=== PATIENT | female | born 1965 | race Caucasian/White ===

== ENCOUNTER 2018-02-13 06:02 | Inpatient (IN) ==
--- NOTE | 2018-02-05 14:03 | Anesthesiology Consultation ---
Date of Service February 05, 2018 Assessment & Plan (1) Encounter for pre-operative examination: Plan: - Egg allergy: anaphylaxis - Patient taking Contrave (naltrexone-bupropion) for weight loss; per patient, this has already been on hold per PCP recommendations. Chart Review Chart Review: Acceptable Risk for Surgery and Patient seen in Pre Admission Testing Teaching & Discussion Pre-Anesthesia Teaching/Discussion Notes: Instructed NPO after midnight before surgery,except medications with 15 cc of water. Medication instructions provided according to the PAT guidelines. History Surgery Operation Date: 02/13/18 11:10 Proposed Procedures p Left Total Knee Arthroplasty - Sher Wilhelm MD Height/Weight Height: 5 ft 9 in Weight: 155.5 kg Allergies Allergy/AdvReac Type Severity Reaction Status Date / Time adhesive tape Allergy Unknown skin Verified 01/31/18 08:17 irritation banana Allergy Unknown gi upsets Verified 01/31/18 07:56 amoxicillin Allergy lips numb, Verified 01/31/18 07:52 hives, swelling blueberry Allergy gi upsets Verified 01/31/18 07:57 egg Allergy anaphylaxis Verified 02/05/18 14:02 Penicillins Allergy hives, Verified 01/31/18 07:52 swelling almond AdvReac Unknown gi upsets Verified 01/31/18 07:56 lactose AdvReac Unknown gi upsets Verified 01/31/18 07:56 strawberry AdvReac Unknown Gastrointestinal Verified 01/31/18 07:57 Upset orange AdvReac gi upsets Verified 01/31/18 07:56 rice AdvReac gi upsets Verified 01/31/18 07:56 Medications Home Medications Medication Instructions Recorded Confirmed Last Taken acetaminophen [Tylenol Arthritis 2 tab PO QAM 01/31/18 01/31/18 Unknown Pain] amlodipine 10 mg PO QAM 01/31/18 01/31/18 Unknown cetirizine [Zyrtec] 10 mg PO DAILY PRN 01/31/18 01/31/18 Unknown naltrexone-bupropion [Contrave] 2 tab PO BID 01/31/18 01/31/18 Unknown valsartan-hydrochlorothiazide 1 tab PO QAM 01/31/18 01/31/18 Unknown Past Medical History Medical History Hypertension Morbid obesity Osteoarthritis Past Surgical History Surgical History History of meniscectomy of left knee Hx of appendectomy Hx of colonoscopy Hx of prior ablation treatment UTERINE Hx of tubal ligation Past Anesthesia History No Hx of Anesthesia Complications (EXCEPT PONV X 1 EPISODE) and No Family Hx of Anesthesia Complications History of PONV Yes (1 EPISODE) Motion Sickness Screening History of Motion Sickness: Yes Social History Smoking Status: Never smoker Do You Dip or Chew Tobacco: No Hx Alcohol Use: Yes Alcohol type: beer alcohol intake frequency: holidays/special occasions only Hx Substance Use: No Exercise / Class Metabolic Activity III < 4 Walking/Shop/Light housework Review of Systems Patient denies chest pain, shortness of breath, reflux, cough, wheezing, palpitations. Physical Exam Vital Signs VITALS BP 148/86 P 83 TEMP 97.5 SP02 96%RA RESP 18 Full neck and c-spine range of motion. Short, thick neck Full TMJ range of motion. TMD 3 finger breaths Mallampati Score 2 (large tonsils) Dentition: missing molars Lungs: clear throughout to auscultation Cardiac: regular rate and rhythm, I/ systolic murmur Spine: normal Carotid arteries: negative bruit Extremities: no edema Testing Electrocardiogram Date: 02/05/18 Findings: + NSR @ (75) Chest X-Ray Date: 02/05/18 Findings: + NAD Laboratory Results 02/05/18 14:25 02/05/18 14:25 Blood Type A Positive 02/05/18 14:25 Antibody Screen NEGATIVE 02/05/18 14:25 PT 9.9 Seconds (9.0-12.0) 02/05/18 14:25 INR 1.0 (0.9-1.1) 02/05/18 14:25 APTT 28.9 Seconds (21.0-31.0) 02/05/18 14:25 Hemoglobin A1c 5.3 % (4.5-5.6) 02/05/18 14:25 Urine Color Yellow 02/05/18 Unknown Urine Appearance Clear (Clear) 02/05/18 Unknown Urine pH 6.5 (4.5-7.5) 02/05/18 Unknown Ur Specific Brent 1.024 (1.000-1.030) 02/05/18 Unknown Urine Protein Negative (Negative) 02/05/18 Unknown Urine Glucose (UA) Negative (Negative) 02/05/18 Unknown Urine Ketones Negative (Negative) 02/05/18 Unknown Urine Nitrite Negative (Negative) 02/05/18 Unknown Ur Leukocyte Esterase Negative (Negative) 02/05/18 Unknown
--- NOTE | 2018-02-05 14:05 | PAT Medication Instructions ---
Medication Instructions Date of Service February 05, 2018 Home Medications acetaminophen [Tylenol Arthritis 2 tab PO QAM amlodipine 10 mg PO QAM cetirizine [Zyrtec] 10 mg PO DAILY PRN naltrexone-bupropion [Contrave] 2 tab PO BID valsartan-hydrochlorothiazide 1 tab PO QAM DO NOT take the morning of surgery cetirizine [Zyrtec] 10 mg PO DAILY PRN valsartan-hydrochlorothiazide 1 tab PO QAM Take morning of surgery With a small sip of water, OTHERWISE NOTHING TO EAT OR DRINK AFTER MIDNIGHT: acetaminophen [Tylenol Arthritis 2 tab PO QAM amlodipine 10 mg PO QAM naltrexone-bupropion [Contrave] 2 tab PO BID Take evening before surgery naltrexone-bupropion [Contrave] 2 tab PO BID Other Notes If you have any questions please call us at [phone] or [phone] or [phone] or [phone]
--- NOTE | 2018-02-05 14:53 | XRay Report ---
XR chest Pre-admission PA/Lat CLINICAL HISTORY: Preoperative evaluation. COMPARISON STUDY: No previous studies for comparison. FINDINGS: Lung volumes are normal. There is no pneumothorax or pleural effusion. There is no consolid ation or evidence for pulmonary edema. Cardiac size is normal. Mediastinal contours are normal. IMPRESSION: No acute cardiopulmonary findings. Electronically signed by: Oniel Osullivan M.D. 02/05/2018 2:52 PM
[2018-02-05 15:00] LABS: Basophils # (auto) 0.03 K/uL (0-0.2); Basophils % (auto) 0.4 %; Eosinophils # (auto) 0.08 K/uL (0-0.5); Hematocrit (blood only) 41.9 % (37-47); Hemoglobin 13.6 g/dL (12.0-16.0); Immature Granulocytes # (auto) 0.02 K/uL (0.00-0.02); Immature Granulocytes % (auto) 0.2 %; Lymphocytes # (auto) 1.81 K/uL (1.2-3.4); Lymphocytes % (auto) 21.9 %; Mean Corpuscular Hgb Conc 32.5 g/dL (32-36); Mean Corpuscular Volume 89.1 fL (80-100); Mean Platelet Volume 9.2 fL (7.4-10.4); Monocytes # (auto) 0.58 K/uL (0.11-0.59); Neutrophils # (auto) 5.73 K/uL (1.4-6.5); Neutrophils % (auto) 69.5 %; Platelet Count 353 K/uL (130-400); RDW Coefficient of Variation 13.7 % (11.5-14.5); RDW Standard Deviation 44.7 fL (36.4-46.3); White Blood Count 8.25 K/uL (4.8-10.8)
[2018-02-05 15:04] LABS: Appearance Urine Clear (Clear); Bilirubin Urine Negative (Negative); Color Urine Yellow; Glucose Urine UA Negative (Negative); Ketones Urine Negative (Negative); Leukocyte Esterase Urine Negative (Negative); Nitrite Urine Negative (Negative); Protein Urine Negative (Negative); Specific Gravity Urine 1.024 (1.000-1.030); Urobilinogen Urine Negative (Negative); pH Urine 6.5 (4.5-7.5)
[2018-02-05 15:14] LABS: Partial Thromboplastin Ratio 1.1; Partial Thromboplastin Time 28.9 Seconds (21.0-31.0); Prothrombin Time 9.9 Seconds (9.0-12.0)
[2018-02-05 15:56] LABS: Albumin Level 3.8 gm/dl (3.4-5.0); BUN Creatinine Ratio 17.6 (10-20); Calcium 8.7 mg/dl (8.5-10.1); Creatinine Clr Calc Pharmacy 132.4 ml/min; Est GFR (African American) 98.2; Est GFR (Non-African American) 84.8; Potassium 3.6 mmol/L (3.5-5.1)
[2018-02-06 06:21] LABS: Estimated Average Glucose 105 mg/dl
--- NOTE | 2018-02-12 16:00 | History and Physical Report ---
DATE OF ADMISSION: 02/13/2018 CHIEF COMPLAINT: Chronic left knee pain. HISTORY OF PRESENT ILLNESS: This is a 52-year-old female patient of Dr. Wilhelm'edu complaining of chronic left knee pain, longstanding, now progressively getting worse. Patient has been diagnosed with end-stage osteoarthritis per clinical and radiographic exams. Patient has failed conservative treatment including intraarticular injections, antiinflammatories, arthroscopic surgery, and physical therapy. She has increased pain with weightbearing activities, and her pain does interfere with her activities of daily living. PAST MEDICAL HISTORY: Hypertension, thyroid nodules, benign, osteoarthritis, spine problems, neck problems, sciatica, obesity. SOCIAL HISTORY: Nonsmoker. Occasional drinker. PAST SURGICAL HISTORY: Tubal ligation, appendectomy, gallbladder, uterine ablation, left meniscal surgery on her knee. FAMILY HISTORY: Noncontributory. REVIEW OF SYSTEMS: Left knee pain and instability, otherwise denies any shortness of breath, chest pain, nausea, vomiting, or any other joint complaints. MEDICATIONS: Valsartan 320/25 daily, amlodipine 10 mg daily, Tylenol 325 mg as needed, ibuprofen as needed. ALLERGIES: INCLUDE AMOXICILLIN, EGG, LATEX, AND PENICILLIN. PHYSICAL EXAMINATION: GENERAL: Well-developed and well-nourished 52-year-old female, in no acute distress. She is alert, oriented x3, and pleasant. HEENT: Normocephalic and atraumatic. Extraocular motions are intact. Pupils are equal and reactive to light. CARDIOVASCULAR: Heart has regular rate and rhythm. There are no murmurs appreciated. RESPIRATORY: Lungs are clear. GASTROINTESTINAL: Abdomen is soft, nontender, bowel sounds present. EXTREMITIES: Left knee reveals mild effusion with 0-125 degrees of motion. She has a valgus deformity. She is morbidly obese. She has 4/5 strength. Neurologically and neurovascularly, she is intact in her left lower extremity. DIAGNOSES: Left knee end-stage osteoarthritis, hypertension, spine problems, neck problems, sciatica, and obesity. PLAN: Patient was advised of her diagnoses. Indications, risks, benefits, postop course have all been reviewed. Patient wished to proceed with a left total knee arthroplasty. Necessary consent forms, preoperative testing and clearances will be obtained.
[~2018-02-13 06:02] MED LIST: ACETAMINOPHEN 500 MG TAB PO SCH; CeleBREX 200 MG CAP PO SCH; FAMOTIDINE 20 MG TAB PO SCH; GABAPENTIN 300 MG x 3 PO SCH; METOCLOPRAMIDE HCL 10 MG TABLET PO SCH; ROPIVACAINE 0.5% HCL/PF 150 MG, BUPIVACAINE 0.5% MPF 30 ML, EPINEPHrine 30MG/30ML (OR U... INFIL SCH; TRANEXAMIC ACID 1,000 MG **IV Pre-op IV SCH; VANCOMYCIN HCL 2,000 MG in SODIUM CHLORIDE 0.9% 500 ML IV SCH; dexAMETHasone 4 MG TAB PO SCH
[2018-02-13] MEDS ORDERED: TRANEXAMIC ACID 1,000 MG **IV Intra-op IV SCH (06:30)
[2018-02-13] MEDS: LR 500ML BOLUS, THEN 15ML/HR IV SCH (06:40)
[2018-02-13] MEDS ORDERED: ROPIVACAINE 0.5% 5 MG/ML 30 ML VIAL ONE (06:42)
[2018-02-13] MEDS ORDERED: BUPIVACAINE 0.5 % 5 MG/1 ML PF 10ML VIAL ONE (06:42)
[2018-02-13] MEDS ORDERED: DEXAMETHASONE SOD INJ 4 MG/ML VIAL ONE ×2 (06:42→08:52)
[2018-02-13] MEDS ORDERED: EPINEPHrine INJ 1 MG/ML AMP ONE (06:42)
[2018-02-13] MEDS ORDERED: MIDAZOLAM HCL 1 MG/ML 2ML VIAL ONE (06:45)
[2018-02-13] MEDS ORDERED: KETAMINE HCL INJ 50 MG/ML 10 ML VIAL ONE (06:46)
--- NOTE | 2018-02-13 07:05 | History & Physical Bridge Note ---
Date of Service February 13, 2018 History & Physical Bridge Note I have examined the patient, reviewed the History & Physical and in the interval since the performance of the History & Physical I have noted the following changes of clinical significance: no changes noted
[2018-02-13] MEDS ORDERED: BACITRACIN INJ 50,000 UNIT VIAL ONE (07:10)
[2018-02-13] MEDS ORDERED: ORTHO JOINT ANESTHETIC ONE (07:10)
[2018-02-13] MEDS ORDERED: POVIDONE-IODINE OP SOLN 30 ML BTL ONE (07:10)
[2018-02-13] MEDS ORDERED: GLYCOPYRROLATE 0.2 MG/ML VIAL ONE (08:52)
[2018-02-13] MEDS ORDERED: ONDANSETRON INJ 2 MG/ML 2 ML VIAL ONE (08:52)
[2018-02-13] MEDS ORDERED: PROPOFOL IV EMULSION 10 MG/ML 20 ML VIAL IV ONE ×3 (08:52→09:53)
[2018-02-13] MEDS ORDERED: LIDOCAINE HCL 2% 2 ML VIAL/AMP(20MG/ML) INFIL ONE (08:52)
--- NOTE | 2018-02-13 10:41 | Post Operative Brief Note ---
Immediate Post Op Note v1 Date of Surgery February 13, 2018 Pre & Post Diagnosis Operation Date: 02/13/18 08:40 Pre-Op Diagnosis: Left Knee Degenerative Joint Disease obesity BMI 50 Post-Op Diagnosis: Left Knee Degenerative Joint Disease obesity BMI 50 Operation Date: 02/13/18 11:10 <No data on this case meets the specified criteria> Procedure Operation Date: 02/13/18 08:40 Actual Procedures p Left Total Knee Arthroplasty, lateral release, increased difficulty morbid obesity BMI 50- Sher Wilhelm MD Operation Date: 02/13/18 11:10 <No data on this case meets the specified criteria> Surgeon Sher Wilhelm MD Lathe Winder Alex LUGO Estimated Blood Loss 5 Findings Consistent with Post-Op Diagnosis Specimens Bone cuts Drains Hemovac Drain (10 [place] Dual lumen hemovac) Anesthesia Type Spinal MAC Complications none Disposition Accompanied Patient To Recovery: No Disposition: Recovery Room Overlapping Procedure I was present for: the critical portions of procedure.
--- NOTE | 2018-02-13 12:03 | Anesthesiology Progress Note ---
Date of Service February 13, 2018 Anesthesia Post Procedure Vital Signs Vital Signs: Temp Pulse Pulse Resp BP Pulse Ox 02/13/18 11:45 82 21 119/71 94 02/13/18 11:35 79 12 154/69 H 97 02/13/18 11:25 36.6 C 85 14 146/69 H 97 02/13/18 11:15 90 14 146/68 H 98 02/13/18 11:06 36.4 C L 101 H 20 121/68 98 02/13/18 06:53 36.6 C 82 20 147/81 H 96 Notes Mental Status: alert / awake / arousable Patient Amnestic to Procedure: Yes Nausea / Vomiting: adequately controlled Pain: adequately controlled Airway Patency, RR, SpO2: stable & adequate BP & HR: stable & adequate Hydration State: stable & adequate Neuraxial Anesthesia: was administered and sensory block is resolving Anesthetic Complications: no major complications apparent
[2018-02-13] MEDS ORDERED: MAGNESIUM HYDROXIDE SUSP 30 ML UDC PO PRN (12:18)
[2018-02-13] MEDS ORDERED: VANCOMYCIN CONSULT ACTIVE PRN (12:18)
[2018-02-13] MEDS ORDERED: ONDANSETRON INJ 2 MG/ML 2 ML VIAL IV PRN (12:18)
[2018-02-13] MEDS ORDERED: MoRPHine SULFATE 2 MG/ML CARP IV PRN (12:18)
[2018-02-13] MEDS ORDERED: SODIUM CHLORIDE 0.9% IV SCH (12:18)
[2018-02-13] MEDS ORDERED: CETIRIZINE HCL 10 MG TABLET PO PRN (12:18)
[2018-02-13] MEDS ORDERED: VANCOMYCIN HCL IV SCH (12:18)
[2018-02-13] MEDS ORDERED: SODIUM CHLORIDE 0.9% 1000ML 1,000 ML IV SCH (12:18)
--- NOTE | 2018-02-13 12:19 | XRay Report ---
LEFT KNEE 2 VIEWS History: Left total knee arthroplasty. Degenerative arthritis. Postop. FINDINGS: The patient is status post a left total knee arthroplasty. The hardware is intact. No fract ure or dislocation. Skin artemio and surgical drains are in place. IMPRESSION: Left total knee arthroplasty. No evidence for hardware complication. Electronically signed by: Jerome Benitez M.D. 02/13/2018 12:17 PM
[2018-02-13] MEDS: TRAMADOL HCL 50 MG TABLET PO PRN ×2 (13:22→19:55)
--- NOTE | 2018-02-13 13:46 | Consultation ---
Date of Consultation February 13, 2018 Assessment & Plan (1) Post-operative state: s/p left TKA 02/13 bowel regimen, dvt prophylaxis, pain control per primary CBC am to assess for acute blood loss (2) Hypertension: Will hold valsartan/hctz for tomorrow to reduce potential for post op orthostatic hypotension (3) Morbid obesity: Hold Contrave while being treated for pain, looks like last dose has been a few weeks ago anyway. Supervising Physician Co-Signing Physician Notes [employer] Physician Supervision Note: I discussed with Francie Oliver NP and agree with findings and plan as documented in the note. Any exceptions or clarifications are listed here: None Patient is stable postoperatively agree with holding her ARB hydrochlorothiazide on postop day 1 physical exam is unremarkable with clear lungs and regular heart continue supportive care Documented By: Anatoly Harvey History of Present Illness Reason for Consultation: Ms. Luna is s/p left TKA today. She is having some pain at the surgical site but is otherwise without complaints. Attending Physician: Sher Wilhelm MD Allergies Allergy/AdvReac Type Severity Reaction Status Date / Time Sulfa (Sulfonamide Allergy Intermediate hives,throat Verified 02/13/18 06:51 Antibiotics) swelling adhesive tape Allergy Unknown skin Verified 02/13/18 06:50 irritation banana Allergy Unknown gi upsets Verified 02/13/18 06:50 amoxicillin Allergy lips numb, Verified 02/13/18 06:50 hives, swelling blueberry Allergy gi upsets Verified 02/13/18 06:50 egg Allergy anaphylaxis Verified 02/13/18 06:50 Penicillins Allergy hives, Verified 02/13/18 06:50 swelling almond AdvReac Unknown gi upsets Verified 02/13/18 06:50 lactose AdvReac Unknown gi upsets Verified 02/13/18 07:12 strawberry AdvReac Unknown Gastrointestinal Verified 02/13/18 06:50 Upset orange AdvReac gi upsets Verified 02/13/18 06:50 rice AdvReac gi upsets Verified 02/13/18 06:50 Home Medications Home Medications Medication Instructions Recorded Confirmed Type acetaminophen [Tylenol Arthritis 2 tab PO QAM 01/31/18 02/13/18 History Pain] amlodipine 10 mg PO QAM 01/31/18 02/13/18 History cetirizine [Zyrtec] 10 mg PO DAILY PRN 01/31/18 02/13/18 History naltrexone-bupropion [Contrave] 2 tab PO BID 01/31/18 02/13/18 History valsartan-hydrochlorothiazide 1 tab PO QAM 01/31/18 02/13/18 History Patient History Medical History Hypertension Osteoarthritis Morbid obesity Surgical History Hx of prior ablation treatment UTERINE Hx of tubal ligation Hx of appendectomy History of meniscectomy of left knee Hx of colonoscopy Family History Father CVA (cerebral vascular accident) Throat cancer Mother Breast cancer Social History Current Living Situation: Spouse Other Information That Helps Us Care for You: No Feels Safe at Home: Yes Safety Concerns: Feels Safe At This Time Smoking Status: Never smoker Do You Dip or Chew Tobacco: No Hx Alcohol Use: Yes Alcohol type: beer Alcohol Intake Frequency: holidays/ special occasions only Hx Substance Use: No Beliefs That Will Affect Care: None Preferred Language: Danish Communication Ability: Effective Review of Systems All other systems reviewed and negative except as discussed in HPI Physical Exam 2 Vital Signs (Past 24 Hours): Last Vital Signs Temp 36.8 C 02/13/18 12:08 Pulse 83 02/13/18 13:00 Resp 18 02/13/18 13:00 BP 148/79 H 02/13/18 13:00 Pulse Ox 98 02/13/18 13:00 Physical Exam: General: no distress Eyes: normal inspection, PERLL Respiratory: chest non tender, clear to auscultation, normal breath sounds, no respiratory distress, no accessory muscle use Cardiac: regular rate and rhythm, no rub or gallop, no murmur, no edema, no jvd GI/: active bowel sounds, no abd pain or tenderness, soft, non distended Extremities: normal range of motion, normal strength, non tender Neuro:oriented x 3, moves all extremities Psych: alert, normal mood and affect Skin: normal color, dry
--- NOTE | 2018-02-13 15:58 | Operative Report ---
Post Operative Report Date of Surgery February 13, 2018 Pre & Post Diagnosis Operation Date: 02/13/18 08:40 Pre-Op Diagnosis: Left Knee Degenerative Joint Disease, morbid obesity BMI 50.6 Post-Op Diagnosis: Left Knee Degenerative Joint Disease, morbid obesity BMI 50.6 Operation Date: 02/13/18 11:10 <No data on this case meets the specified criteria> Procedure Operation Date: 02/13/18 08:40 Actual Procedures p Left Total Knee Arthroplasty(Left), increased difficulty morbid obesity BMI 50.6- Sher Wilhelm MD Operation Date: 02/13/18 11:10 <No data on this case meets the specified criteria> Surgeon Sher Wilhelm MD Tafe Teacher Alex LUGO Estimated Blood Loss 5 Findings Consistent with Post-Op Diagnosis Specimens Bone cuts Drains 2 Hemovac Anesthesia Type Spinal MAC Complications none Disposition Accompanied Patient To Recovery: No Disposition: Recovery Room Indications 52-year-old female failed conservative management severe left knee osteoarthritis [id number] medial compartment. Patient already had arthroscopic surgery extensive conservative management with all conservative management attempted. Patient also some weight loss program taking medication for weight loss. Description of Procedure Patient taken to the operating room the size under spinal MAC anesthesia. Patient was placed supine on the operating table. A pneumatic tourniquet was placed about the left obese upper thigh. The left lower extremity was prepped and draped in sterile fashion. Knee exam demonstrated slight flexion contracture flexion to 120 degrees no instability very large heavy leg with obese leg. The leg was elevated exsanguinated with an Esmarch bandage and pneumatic tourniquet was raised to 350 millimeters of mercury. Skin incised sharply in longitudinal fashion. Subcutaneous flaps elevated. Deeper than typical fat was encountered. Larger than typical incision was made for exposure. Incision was made through the medial retinaculum extending up in the mid third of the quadriceps tendon and down to the medial tibial tubercle. Intra-articular findings demonstrated severe medial compartment OA [id number] meniscus loss medially tricompartmental osteoarthritis. The [employer] triathlon total knee arthroplasty system was used. To expose the knee the infrapatellar fat pad was resected. The meniscal remnants and cruciate ligaments were resected. The anterior fat pad over the femur in the area of the anterior flange of the femoral component was resected. Lateral synovial bands release. The femur was exposed. An intramedullary drill hole was made into the canal. A guidewire was placed. Distal femoral cutting guide was adjusted to resect 5 degree valgus cut with 10 millimeters distal femur resected. The knee was extended and a subperiosteal peel lateral release was performed around the patella. Patella width was measured and width was reproduced using a freehand cut technique and a S 33 x 9 patella component. The 3 drill holes were made and the excess lateral facet was beveled off to prevent any impingement. Attention was taken back to the femur which was exposed with retractors and the femoral sizing guide was pinned in position. The drill holes were placed in 3 of external rotation to match epicondylar axis. Femur sized for a 5 component. The 4-in-1 cutting block was placed and then the anterior posterior and chamfer cuts are made. The tibia was then subluxed. The external tibial cutting guide was just to make a perpendicular cut to the long axis of the tibia below the most deficient bone loss side. A lamina research dietitian was used and the flexion extension gaps were balanced. All posterior osteophytes removed. All meniscal remnants were resected. The tibia exposed and the trial tibial component size 5 was externally rotated in line with the tibial tubercle and pinned in position. The punch for stem was used. The notch cutting device was centered appropriately and the femoral notch cut was made. The femoral trial was inserted. Trial tibial inserts were placed and size 11 posterior stabilized gave balanced ligaments through flexion and extension. Patella tracking was assessed. The patella tracked laterally in deep flexion so went ahead and did a formal lateral release and then the patella tracked centrally. Lateral retinaculum was released keeping the synovium intact. The trial components were then removed and the orthomix anesthetic cocktail was injected per protocol. The knee was then copiously irrigated with pulsatile lavage antibiotic solution. Final components were then cemented with Simplex cement. Final components were triathlon left size 5 posterior stabilized femoral component a size 5 primary tibial baseplate and a size 5 x 11 mm posterior stabilized X3 polyethylene insert for the tibia and a X3 polyethylene symmetrical patella size 33 x 9. While the cement cured the Betadine soak was used per protocol. After cement cured further pulsatile lavage irrigation performed and 2 Hemovac drains were brought out laterally. The quadriceps tendon and medial retinaculum were closed with figure of 8 #1 Vicryl sutures. The knee was taken through full range of motion and the repair was secure. The subcutaneous tisssues were closed with 2-0 Vicryl sutures. Skin was closed with artemio. Sterile dressings were applied. Due to the size of the patient there was increased difficulty throughout the procedure. The patient tolerated the procedure well. Alex LUGO was my physician financial assistant who assisted in patient positioning prepping and draping,leg positioning ,soft tissue retraction and instrument management and participated in the closing and will participate in postoperative care of the patient. The patient tolerated the procedure well. I attest to the content of the Intraoperative Record and any orders documented therein. Any exceptions are noted below.
[2018-02-13] MEDS ORDERED: VANCOMYCIN HCL 2,250 MG in SODIUM CHLORIDE 0.9% 500 ML IV ONE (18:30)
[2018-02-13] MEDS ORDERED: Nursing to Pharmacy Communication ONE (21:04)
[2018-02-14] MEDS: TRAMADOL HCL 50 MG TABLET PO PRN ×3 (00:09→15:27)
[2018-02-14 07:02] LABS: Hemoglobin 12.1 g/dL (12.0-16.0); Mean Corpuscular Hgb Conc 32.7 g/dL (32-36); Mean Corpuscular Volume 89.4 fL (80-100); Mean Platelet Volume 9.1 fL (7.4-10.4); Platelet Count 374 K/uL (130-400); RDW Coefficient of Variation 13.9 % (11.5-14.5); RDW Standard Deviation 45.4 fL (36.4-46.3); Red Blood Count 4.14 M/uL (4.2-5.4); White Blood Count 19.14 K/uL (4.8-10.8)
[2018-02-14 07:37] LABS: BUN Creatinine Ratio 18.1 (10-20); Calcium 8.5 mg/dl (8.5-10.1); Creatinine Clr Calc Pharmacy 126.1 ml/min; Est GFR (African American) 92.6; Est GFR (Non-African American) 79.9
[2018-02-14] MEDS: AMLODIPINE BESYLATE 5 MG TAB PO SCH (08:07)
[2018-02-14] MEDS: MULTIVITAMIN TAB PO SCH (08:07)
[2018-02-14] MEDS: RIVAROXABAN 10 MG TABLET PO SCH (08:08)
[2018-02-14] MEDS: hydroCHLOROthiazide 25 MG TAB PO SCH (08:08)
[2018-02-14] MEDS: OXYCODONE HCL IR 5 MG TAB (IMMEDIATE RELEASE) PO PRN ×4 (08:16→20:59)
--- NOTE | 2018-02-14 08:26 | Orthopedic Progress Note ---
Date of Service February 14, 2018 Assessment & Plan (1) Left knee DJD: POD #1, Left TKA w prevena wound vac PT/ OT DVT proph- Xarelto D/C planning- Home w OPPT As per medicine. Subjective POD #1, doing well, pain is starting to increase as result of anesthesia wearing off. denies sob, cp, n/v. Physical Exam 2 Vital Signs (Past 24 Hours): Last Vital Signs Temp 36.5 C 02/14/18 07:38 Pulse 73 02/14/18 07:38 Resp 18 02/14/18 07:38 BP 157/95 H 02/14/18 07:38 Pulse Ox 92 02/14/18 07:38 Physical Exam: Left knee dressings c/d/i, no drainage, toes and ankle mobile, no calf tenderness, A&Ox3.
[2018-02-14] MEDS ORDERED: VALSARTAN 80 MG TAB PO SCH (09:00)
--- NOTE | 2018-02-14 10:16 | Anesthesiology Progress Note ---
Date of Service February 14, 2018 Anesthesia Post Procedure Vital Signs Vital Signs: Temp Pulse Pulse Resp BP BP Pulse Ox 02/14/18 07:38 36.5 C 73 18 157/95 H 92 02/14/18 04:00 36.8 C 74 16 140/83 92 02/14/18 00:02 36.6 C 74 16 130/77 94 02/13/18 14:56 36.7 C 72 19 130/76 94 02/13/18 14:00 69 16 131/68 98 02/13/18 13:00 83 18 148/79 H 98 02/13/18 12:48 74 18 108/65 98 02/13/18 12:08 36.8 C 90 16 126/71 95 02/13/18 11:45 82 21 119/71 94 02/13/18 11:35 79 12 154/69 H 97 02/13/18 11:25 36.6 C 85 14 146/69 H 97 02/13/18 11:15 90 14 146/68 H 98 02/13/18 11:06 36.4 C L 101 H 20 121/68 98 Notes Mental Status: alert / awake / arousable and participated in evaluation Patient Amnestic to Procedure: Yes Nausea / Vomiting: adequately controlled Pain: adequately controlled Airway Patency, RR, SpO2: stable & adequate BP & HR: stable & adequate Hydration State: stable & adequate Neuraxial Anesthesia: was administered and sensory block resolved Anesthetic Complications: no major complications apparent and Pt Satisfied with anesthetic care
--- NOTE | 2018-02-14 10:46 | Hospitalist Progress Note ---
Date of Service February 14, 2018 Assessment & Plan (1) Post-operative state: s/p left TKA 02/13 bowel regimen, dvt prophylaxis, pain control per primary Hgb stable, leukocytosis of 19 likely secondary to demargination from surgery and dexamethasone administration, would repeat CBC am and monitor for any s/s of infection (2) Hypertension: Held valsartan today. Can restart tomorrow. Continue HCTZ. (3) Morbid obesity: Hold Contrave while being treated for pain, looks like last dose has been a few weeks ago anyway. The hospitalist team will sign off at this point, please let us know if we can be of service in the future. Subjective Doing well, tolerated therapy with moderate amount of pain. No other complaints Review of Systems All systems reviewed & are unremarkable except as noted in HPI & below Physical Exam 2 Vital Signs (Past 24 Hours): Last Vital Signs Temp 36.5 C 02/14/18 07:38 Pulse 73 02/14/18 07:38 Resp 18 02/14/18 07:38 BP 157/95 H 02/14/18 07:38 Pulse Ox 92 02/14/18 07:38 Physical Exam: General: no distress Eyes: normal inspection, PERLL Respiratory: chest non tender, clear to auscultation, normal breath sounds, no respiratory distress, no accessory muscle use Cardiac: regular rate and rhythm, no rub or gallop, no murmur, no edema, no jvd GI/: active bowel sounds, no abd pain or tenderness, soft, non distended Extremities: normal range of motion, normal strength, non tender Neuro/Psych: alert and oriented x 3, normal mood and affect Skin: normal color, dry Results & Data Laboratory Results Abnormal lab results 02/14/18 02/14/18 Range/Units 06:45 06:45 WBC 19.14 H (4.8-10.8) K/uL RBC 4.14 L (4.2-5.4) M/uL Glucose 107 H (70-99) mg/dl
[2018-02-14] MEDS: LR 500ML BOLUS, THEN 15ML/HR IV SCH ×2 (16:55→16:56)
[2018-02-15] MEDS: TRAMADOL HCL 50 MG TABLET PO PRN (03:13)
[2018-02-15 07:09] LABS: Hematocrit (blood only) 32.7 % (37-47); Hemoglobin 10.7 g/dL (12.0-16.0); Mean Corpuscular Hgb Conc 32.7 g/dL (32-36); Mean Corpuscular Volume 89.6 fL (80-100); Mean Platelet Volume 8.8 fL (7.4-10.4); Platelet Count 248 K/uL (130-400); RDW Coefficient of Variation 14.2 % (11.5-14.5); RDW Standard Deviation 46.9 fL (36.4-46.3); Red Blood Count 3.65 M/uL (4.2-5.4); White Blood Count 9.91 K/uL (4.8-10.8)
[2018-02-15] MEDS: OXYCODONE HCL IR 5 MG TAB (IMMEDIATE RELEASE) PO PRN ×2 (07:33→12:11)
[2018-02-15] MEDS: hydroCHLOROthiazide 25 MG TAB PO SCH (07:35)
[2018-02-15] MEDS: MULTIVITAMIN TAB PO SCH (07:35)
[2018-02-15] MEDS: AMLODIPINE BESYLATE 5 MG TAB PO SCH (07:35)
[2018-02-15] MEDS: RIVAROXABAN 10 MG TABLET PO SCH (07:36)
[2018-02-15 07:44] LABS: BUN Creatinine Ratio 21.3 (10-20); Calcium 8.2 mg/dl (8.5-10.1); Creatinine Clr Calc Pharmacy 141.2 ml/min; Est GFR (African American) 106.2; Est GFR (Non-African American) 91.6; Potassium 3.2 mmol/L (3.5-5.1)
--- NOTE | 2018-02-15 08:14 | Orthopedic Progress Note ---
Date of Service February 15, 2018 Assessment & Plan (1) Left knee DJD: POD #2, Left TKA w prevena wound vac PT/ OT DVT proph- Xarelto D/C planning- Home w OPPT today. As per medicine. Subjective POD #2, doing well, pain controlled well. denies sob, cp, n/v. Physical Exam 2 Vital Signs (Past 24 Hours): Last Vital Signs Temp 37.0 C 02/15/18 06:35 Pulse 80 02/15/18 06:35 Resp 16 02/15/18 06:35 BP 132/79 02/15/18 06:35 Pulse Ox 94 02/15/18 06:35 Physical Exam: Left knee wound vac in tact, no erythema, no calf tenderness, toes and ankle mobile. A&Ox3.
[2018-02-15] MEDS ORDERED: POTASSIUM CHLORIDE 20 MEQ TABCR PO ONE (09:00)
--- NOTE | 2018-03-03 14:18 | Discharge Summary ---
REASON FOR ADMISSION: Chronic left knee pain. HISTORY OF PRESENT ILLNESS: This is a 52-year-old female patient of Dr. Wilhelm's complaining of chronic left knee pain, longstanding, progressively getting worse. She was diagnosed with end-stage osteoarthritis and elected to proceed with a left total knee arthroplasty. PAST MEDICAL HISTORY: Hypertension, thyroid nodules which are benign, osteoarthritis, spine problems, neck problems, sciatica, and obesity. POSTOPERATIVE COURSE: Patient underwent a left total knee arthroplasty on 02/13/2018. She was followed closely with medical consultation, DVT prophylaxis in the form of Xarelto, physical therapy, and pain control. Patient did very well postoperatively and was discharged home on postoperative day #2. PHYSICAL EXAMINATION: Left knee superficial wound VAC was clean, dry, intact, and holding suction well. There was no redness or drainage. She had no calf tenderness. Negative Homans sign. Neurologically and neurovascularly, she was intact in her left lower extremity. DIAGNOSES: Status post left total knee arthroplasty with a history of hypertension, benign thyroid nodules, osteoarthritis, spine problems, neck problems, sciatica, obesity. PLAN: Patient was discharged home with outpatient physical therapy. She will continue her Prevena wound VAC for 1 week postoperatively. She will continue Xarelto for DVT prophylaxis for 14 days. She will do outpatient physical therapy. The patient will continue her preadmission medications with the addition of pain medications. Patient will follow up with Dr. Wilhelm as scheduled as an outpatient.
== END 2018-02-15 12:45 | disposition home or self-care (01) | DRG 470 ==
LOC: ASU 06:02 → 3E 11:12

== ENCOUNTER 2022-10-18 06:39 | Observation (INO) ==
--- NOTE | 2022-09-28 16:21 | PAT Medication Instructions ---
Medication Instructions Date of Service September 28, 2022 Home Medications amlodipine 10 mg tablet 10 mg PO QAM cetirizine 10 mg tablet (Zyrtec) 10 mg PO DAILY PRN allergies acetaminophen 500 mg tablet 1,000 mg PO UD PRN Pain olmesartan 40 mg-hydrochlorothiazide 25 mg tablet 1 tab PO QAM DO NOT take the morning of surgery cetirizine 10 mg tablet (Zyrtec) 10 mg PO DAILY PRN allergies olmesartan 40 mg-hydrochlorothiazide 25 mg tablet 1 tab PO QAM Take morning of surgery With a small sip of water, OTHERWISE NOTHING TO EAT OR DRINK AFTER MIDNIGHT: amlodipine 10 mg tablet 10 mg PO QAM acetaminophen 500 mg tablet 1,000 mg PO UD PRN Pain (if needed) Take evening before surgery acetaminophen 500 mg tablet 1,000 mg PO UD PRN Pain (if needed) Other Notes If you have any questions please call us at [phone] or [phone] or [phone] or [phone]
--- NOTE | 2022-09-29 08:16 | Anesthesiology Consultation ---
Date of Service September 29, 2022 Assessment & Plan (1) Encounter for pre-operative examination: Plan - left TKA anesthesia concerns: pt reports awareness during surgery including "hearing saws, metal, saw leg." General vs neuraxial anesthesia discussed in detail with patient, she states would prefer to still pursue neuraxial anesthesia. Final determination will be to anesthesiologist and patient discussion DOS. - Outpatient joint assessment: Patient is currently scheduled for inpatient pathway. If re-evaluated and patient/surgeon requests outpatient pathway, patient is not acceptable candidate for outpatient joint program from anesthesia standpoint. Chart Review Chart Review: Acceptable Risk for Surgery and Patient NOT seen in Pre Admission Testing Teaching & Discussion Pre-Anesthesia Teaching/Discussion Notes: Instructed NPO after midnight before surgery, except medications with 15 cc of water. Medication instructions provided according to the PAT guidelines. History Surgery Operation Date: 10/18/22 12:45 Proposed Procedures p Right Total Knee Arthroplasty - Sher Wilhelm MD Height/Weight Height: 5 ft 9 in Weight: 148.9 kg Allergies Allergy/AdvReac Type Severity Reaction Status Date / Time adhesive tape Allergy Unknown skin Verified 09/27/22 15:00 irritation amoxicillin Allergy Unknown lips numb, Verified 09/27/22 15:00 hives, swelling blueberry Allergy Unknown gi upsets Verified 09/27/22 15:00 egg Allergy Unknown anaphylaxis Verified 09/27/22 15:00 Penicillins Allergy Unknown hives, Verified 09/27/22 15:00 swelling Sulfa (Sulfonamide Allergy Unknown hives,throat Verified 09/27/22 15:00 Antibiotics) swelling almond AdvReac Unknown gi upsets Verified 09/27/22 15:00 banana AdvReac Unknown gi upsets Verified 09/27/22 15:00 lactose AdvReac Unknown gi upsets Verified 09/27/22 15:00 orange AdvReac Unknown gi upsets Verified 09/27/22 15:00 rice AdvReac Unknown gi upsets Verified 09/27/22 15:00 strawberry AdvReac Unknown Gastrointestinal Verified 09/27/22 15:00 Upset Medications Home Medications Medication Instructions Recorded Confirmed Last Taken amlodipine 10 mg tablet 10 mg PO QAM 01/31/18 09/27/22 02/13/18 03:00 cetirizine 10 mg tablet (Zyrtec) 10 mg PO DAILY PRN allergies 01/31/18 09/27/22 Unknown acetaminophen 500 mg tablet 1,000 mg PO UD PRN Pain 09/27/22 09/27/22 Unknown olmesartan 40 1 tab PO QAM 09/27/22 09/27/22 Unknown mg-hydrochlorothiazide 25 mg tablet Past Medical History Medical History Acid reflux remote hx, controlled and stable at this time per pt History of colon polyps noncancerous per pt History of COVID-19 2020 > cough, fever, sore throat, fatigue > received monoclonal antibodies > denies hospitalization > symptoms resolved Hypertension controlled, stable per pt Morbid obesity Nausea and vomiting after administration of anesthetic agent denies needing scop patch Sleep apnea mild, did not need CPAP per pt Patient denies h/o stroke, seizures, heart attack, heart failure, DM, blood clots or blood transfusions. Exercise / Class Metabolic Activity II 4-5 Yardwork/Stairs/Walk up hill (denies chest discomfort or shortness of breath with 1 FOS) Past Family History Family History Father Throat cancer Stroke Mother Breast cancer Aunt Family history of diabetes mellitus Aunt Family history of diabetes mellitus Brother Family history of diabetes mellitus Past Surgical History Surgical History History of cholecystectomy History of endoscopy remote History of left knee replacement History of meniscectomy of left knee Hx of appendectomy Hx of colonoscopy Hx of prior ablation treatment UTERINE Hx of tubal ligation Past Anesthesia History No Family Hx of Anesthesia Complications and Other (awareness during L TKA) History of PONV History of PONV (denies needing scop patch) and Hx of Motion Sickness Social History Smoking Status: Never smoker Do You Dip or Chew Tobacco: No Hx Alcohol Use: Yes Alcohol type: beer alcohol intake frequency: holidays/special occasions only Hx Substance Use: No substance use type: does not use Review of Systems Patient denies chest pain, shortness of breath, dyspnea on exertion, fever, chills, cough, wheezing, or palpitations. Physical Exam Vital Signs Vitals BP 124/81 P 72 TEMP 97.7 SP02 97% on RA RESP 18 Physical Patient resting comfortably in chair in NAD, alert and oriented, responding appropriately throughout visit Full cervical extension range of motion without pain TMD 3.5 finger breadths Mallampati Score 2 Dentition: one crown, denies chipped or loose teeth, caps, implants or bridges Lungs: normal respiratory effort. Good air movement, clear throughout to auscultation, no adventitious breath sounds Cardiac: regular rate and rhythm, no murmurs noted Carotid arteries: negative bruit bilat Lab Results Anesthesia Preop Results Results Anesthesia Widget: WBC 8.35 K/ul (4.8-10.8) 09/29/22 Hgb 13.7 g/dl (12.0-16.0) 09/29/22 Hct 42.2 % (37.0-47.0) 09/29/22 Plt 362 K/uL (130-400) 09/29/22 Na 138 mmol/L (136-145) 09/29/22 K 3.7 mmol/L (3.5-5.1) 09/29/22 Cl 102 mmol/L (98-107) 09/29/22 CO2 28 mmol/L (21-32) 09/29/22 BUN 14 mg/dl (6-23) 09/29/22 Creat 0.83 mg/dl (0.6-1.2) 09/29/22 Glucose Level 100 mg/dl (70-99(Fasting)) H 09/29/22 PT 10.3 Seconds (9.0-12.0) 09/29/22 PTT 30.6 Seconds (21.0-31.0) 09/29/22 INR 0.9 (0.9-1.1) 09/29/22 Urine Color Yellow 09/29/22 Urine Appearance Clear (Clear) 09/29/22 Urine pH 6.0 (4.5-7.5) 09/29/22 Urine Specific [place] 1.007 (1.000-1.030) 09/29/22 Urine Protein Negative (Negative) 09/29/22 Urine Glucose (UA) Negative (Negative) 09/29/22 Urine Ketones Negative (Negative) 09/29/22 Urine Blood Negative (Negative) 09/29/22 Urine Nitrite Negative (Negative) 09/29/22 Urine Bilirubin Negative (Negative) 09/29/22 Urine Urobilinogen Negative (Negative) 09/29/22 Urine Leukocyte Esterase Negative (Negative) 09/29/22 Blood Type A Positive 09/29/22 Antibody Screen NEGATIVE 09/29/22 Testing Electrocardiogram Date: 09/29/22 NSR, rate 60 bpm Chest X-Ray Date: 12/29/21 No active pulmonary disease
--- NOTE | 2022-10-16 20:17 | History & Physical Report ---
Date of Service October 16, 2022 Assessment & Plan (1) Primary osteoarthritis of right knee: Plan: Treatment options discussed with the patient. She has failed conservative measures. She would like to proceed with surgery. Risks, benefits and alternatives to surgery including but not limited to infection, DVT, pain, stiffness, need for revision surgery, damage to blood vessels, damage to nerves, PE, , were discussed with the patient and they wish to proceed. Plan on right total knee arthroplasty scheduled for [facility] on 10/18/[address] Wilhelm. Plan on Xarelto post op for DVT prophylaxis. Plan on outpatient PT. All questions answered. Patient will follow up post op. History of Present Illness Chief Complaint: Right knee pain Primary Care Provider: Seven Desouza 56 yo female with PMHx significant for HTN, JENNIFER who presents with ongoing right knee pain. Pain is interfering with her daily activity. She has failed conservative measures and would like to proceed with surgical intervention. Patient denies headaches, sweats, fevers, chills, double vision, blurred vision, cough, sore throat, dysphagia, chest pain, sob, wheezing, n/v/d/c, numbness, tingling, fatigue, urinary symptoms, mood disorders. ROS positive for right knee pain and stiffness. Allergies Allergy/AdvReac Type Severity Reaction Status Date / Time adhesive tape Allergy Unknown skin Verified 09/27/22 15:00 irritation amoxicillin Allergy Unknown lips numb, Verified 09/27/22 15:00 hives, swelling blueberry Allergy Unknown gi upsets Verified 09/27/22 15:00 egg Allergy Unknown anaphylaxis Verified 09/27/22 15:00 Penicillins Allergy Unknown hives, Verified 09/27/22 15:00 swelling Sulfa (Sulfonamide Allergy Unknown hives,throat Verified 09/27/22 15:00 Antibiotics) swelling almond AdvReac Unknown gi upsets Verified 09/27/22 15:00 banana AdvReac Unknown gi upsets Verified 09/27/22 15:00 lactose AdvReac Unknown gi upsets Verified 09/27/22 15:00 orange AdvReac Unknown gi upsets Verified 09/27/22 15:00 rice AdvReac Unknown gi upsets Verified 09/27/22 15:00 strawberry AdvReac Unknown Gastrointestinal Verified 09/27/22 15:00 Upset Home Medications Medication Instructions Recorded Confirmed Type amlodipine 10 mg tablet 10 mg PO QAM 01/31/18 09/27/22 History cetirizine 10 mg tablet (Zyrtec) 10 mg PO DAILY PRN allergies 01/31/18 09/27/22 History acetaminophen 500 mg tablet 1,000 mg PO UD PRN Pain 09/27/22 09/27/22 History olmesartan 40 1 tab PO QAM 09/27/22 09/27/22 History mg-hydrochlorothiazide 25 mg tablet Past Med/Surg History Medical History Acid reflux remote hx, controlled and stable at this time per pt History of colon polyps noncancerous per pt History of COVID-19 2020 > cough, fever, sore throat, fatigue > received monoclonal antibodies > denies hospitalization > symptoms resolved Hypertension controlled, stable per pt Morbid obesity Nausea and vomiting after administration of anesthetic agent denies needing scop patch Sleep apnea mild, did not need CPAP per pt Surgical History History of cholecystectomy History of endoscopy remote History of left knee replacement History of meniscectomy of left knee Hx of appendectomy Hx of colonoscopy Hx of prior ablation treatment UTERINE Hx of tubal ligation Family History Father Throat cancer Stroke Mother Breast cancer Aunt Family history of diabetes mellitus Aunt Family history of diabetes mellitus Brother Family history of diabetes mellitus Social History Smoking Status: Never smoker Do You Dip or Chew Tobacco: No; Hx Alcohol Use: Yes Alcohol type: beer Hx Substance Use: No Preferred Language: Mosotho Communication Ability: Effective Uniform Room Attendant Required: No Beliefs That Will Affect Care: Bahai Bahai Beliefs: Alevism marital status: Current Living Situation: Spouse Feels Safe at Home: Yes Assistive Devices: Glasses Review of Systems All systems reviewed & are unremarkable except as noted in HPI & below Physical Exam Constitutional: well developed and well nourished; no acute distress Eyes: PERRL, conjunctivae normal, anicteric sclerae ENMT: external ear and nose normal, oropharynx normal Neck: trachea midline, no thyromegaly Respiratory: normal respiratory effort, lungs clear to auscultation Cardiovascular: RRR, no murmur, no edema Musculoskeletal: Right knee: Varus alignment. Tenderness medial joint line. Stable to valgus and varus stress. Guarded Connor's. ROM 0-95 degrees. Skin: no rashes, warm and dry Neurologic: patellar DTR's 2+ bilat, sensation intact Psychiatric: A+Ox3, euthymic affect Results & Data Diagnostic Findings Right knee radiographs: End stage osteoarthritis, bone on bone medial compartment. There is periarticular osteophytes.
[~2022-10-18 06:39] MED LIST changes: -FAMOTIDINE 20 MG TAB PO SCH; -GABAPENTIN 300 MG x 3 PO SCH; +LR 500ML BOLUS, THEN 15ML/HR IV SCH; +LR 60ML/HR IV SCH; -ROPIVACAINE 0.5% HCL/PF 150 MG, BUPIVACAINE 0.5% MPF 30 ML, EPINEPHrine 30MG/30ML (OR U... INFIL SCH; +ROPIVACAINE 0.5% HCL/PF 150 MG, BUPIVACAINE 0.75% MPF 20 ML, EPINEPHrine 30MG/30ML (OR ... INSTIL SCH; +TRANEXAMIC ACID 1,000 MG **IV Intra-op IV SCH
--- NOTE | 2022-10-18 07:35 | History & Physical Bridge Note ---
Date of Service October 18, 2022 History & Physical Bridge Note I have examined the patient, reviewed the History & Physical and in the interval since the performance of the History & Physical I have noted the following changes of clinical significance: no changes noted
[2022-10-18] MEDS ORDERED: BUPIVACAINE 0.5 % 5 MG/1 ML PF 10ML VIAL ONE (07:36)
[2022-10-18] MEDS ORDERED: ROPIVACAINE 0.5% 5 MG/ML 30 ML VIAL ONE (07:36)
[2022-10-18] MEDS: FAMOTIDINE 20 MG TAB PO SCH ×2 (07:45→08:04)
[2022-10-18] MEDS: GABAPENTIN 600 MG DOSE PO SCH ×2 (07:45→08:04)
[2022-10-18] MEDS ORDERED: LIDOCAINE 2% 2 ML VIAL/AMP(20MG/ML) INFIL ONE (07:48)
[2022-10-18] MEDS ORDERED: fentaNYL citrate PF 100 MCG/2 ML VIAL ONE (07:48)
[2022-10-18] MEDS ORDERED: MIDAZOLAM HCL 1 MG/ML 2ML VIAL ONE (07:48)
[2022-10-18] MEDS ORDERED: PROPOFOL IV EMULSION 10 MG/ML 20 ML VIAL IV ONE ×13 (07:48→12:39)
[2022-10-18] MEDS ORDERED: SCOPOLAMINE 1 MG TDSY TD ONE (08:02)
[2022-10-18] MEDS ORDERED: ATROPINE SULFATE 0.1 MG/ML 10ML SYR IV PRN (08:17)
[2022-10-18] MEDS ORDERED: ONDANSETRON INJ 2 MG/ML 2 ML VIAL IV PRN ×2 (08:17→14:49)
[2022-10-18] MEDS ORDERED: ePHEDrine sulfate 50 MG/ML AMP IV PRN (08:17)
[2022-10-18] MEDS ORDERED: ORTHO JOINT ANESTHETIC ONE (10:16)
[2022-10-18] MEDS ORDERED: ePHEDrine sulfate 50 MG/ML AMP ONE (11:46)
--- NOTE | 2022-10-18 13:24 | Post Operative Brief Note ---
Immediate Post Op Note v1 Date of Surgery October 18, 2022 Pre & Post Diagnosis Operation Date: 10/18/22 09:45 Pre-Op Diagnosis: Right Knee Osteoarthritis, morbid obesity BMI 48 Post-Op Diagnosis: Right Knee Osteoarthritis, morbid obesity BMI 48 I identified the patient and participated in the time-out.: Yes Procedure Operation Date: 10/18/22 09:45 Actual Procedures p Right Total Knee Arthroplasty(Right), lateral release, increased difficulty morbid obesity BMI 48- Sher Wilhelm MD Surgeon Sher Wilhelm MD Picker/Puller Demarco LUGO Estimated Blood Loss 5 Findings Consistent with Post-Op Diagnosis Specimens Bone cuts Drains Hemovac Drain Anesthesia Type MAC Spinal Regional Complications none Disposition Disposition: Recovery Room Overlapping Procedure I was immediately available: during the entire case.
[2022-10-18] MEDS: fentaNYL citrate PF 100 MCG/2 ML VIAL IV PRN ×4 (13:36→13:51)
--- NOTE | 2022-10-18 13:42 | Operative Report ---
Post Operative Report Pre & Post Diagnosis Operation Date: 10/18/22 09:45 Pre-Op Diagnosis: Right Knee Osteoarthritis, morbid obesity BMI 48.0 Post-Op Diagnosis: Right Knee Osteoarthritis, morbid obesity BMI 48.0 I identified the patient and participated in the time-out.: Yes Procedure Operation Date: 10/18/22 09:45 Actual Procedures p Right Total Knee Arthroplasty(Right), lateral release, increased difficulty morbid obesity BMI 48.0- Sher Wilhelm MD Surgeon Sher Wilhelm MD Claims Assistant Demarco LUGO Estimated Blood Loss 5 Findings Consistent with Post-Op Diagnosis Specimens Bone cuts Drains 2 Hemovac Anesthesia Type MAC Spinal Regional Complications none Disposition Disposition: Recovery Room Indications 56-year-old female with chronic progressive osteoarthritis in the right knee failed conservative management. Patient had successful left knee replacement in the past. Her right knee is varus has patellofemoral medial compartment osteoarthritis [id number] medial compartment. Description of Procedure Patient taken to the operating room the size under spinal MAC regional block anesthesia. Patient was placed supine on the operating table. A pneumatic tourniquet was placed about the right upper thigh. The right lower extremity was prepped and draped in sterile fashion. Knee exam demonstrated patient had an obese thigh and knee with full extension of the knee and flexion only to about 100 degrees. No instability or pseudolaxity.. The leg was elevated exsanguinated with an Esmarch bandage and pneumatic tourniquet was raised to 350 millimeters of mercury. Skin incised sharply in longitudinal fashion. Made a slightly longer incision than typical due to the obesity. Deep subcutaneous fla ps were elevated. Incision was made through the medial retinaculum extending up in the mid third of the quadriceps tendon and down to the medial tibial tubercle. Intra-articular findings demonstrated grade 4 osteoarthritis medial compartment grade 3 osteoarthritis patellofemoral joint. Chronic radial tear medial meniscus and intact cruciate ligaments. Large loose body posterior medial compartment 2 cm x 1 cm and a smaller loose body about 6 mm in diameter. The [employer] triathlon total knee arthroplasty system was used. To expose the knee the infrapatellar fat pad was resected. The meniscal remnants and cruciate ligaments were resected. The loose bodies were excised. The anterior fat pad over the femur in the area of the location of the anterior flange of the femoral component was resected. The lateral synovial bands were released. The femur was exposed. An intramedullary drill hole was made into the canal. A guide audra was placed. Distal femoral cutting guide was adjusted to resect a 5 degree valgus cut with 8 millimeters distal femur resected. The knee was extended and a subperiosteal peel lateral release was performed around the patella. Patella width was measured and width was reproduced using a freehand cut technique and a 33 x 9 symmetrical patella component. The 3 drill holes were made and the excess lateral facet was beveled off to prevent any impingement. Attention was taken back to the femur which was exposed with retractors and the femoral sizing guide was pinned in position. The drill holes were placed in 3 of external rotation to match the epicondylar axis. The femur sized for a 5 component. The 4-in-1 cutting block was placed and then the anterior posterior and chamfer cuts are made. The tibia was then subluxed. The external tibial cutting guide was adjusted to make a perpendicular cut to the long axis of the tibia below the most deficient bone loss side. Cut was adjusted for slope. A lamina special education teachers was used and the flexion extension gaps were balanced. Medial and posterior medial releases were required. All posterior osteophytes removed. All meniscal remnants were resected. The tibia exposed and the trial tibial component size 5 was externally rotated in line with the tibial tubercle and pinned in position. The punch for stem was used. It was noted that the bone was extremely hard. The notch cutting device was centered appropriately and the femoral notch cut was made. The femoral trial was inserted. Trial tibial inserts were placed and size 11 posterior stabilized gave balanced ligaments through flexion and extension. Patella tracking was assessed. The patella tracked with some lateral patellar tilt so I did do a lateral release maintaining the synovial tissue intact and this corrected patella tracking to central.. The trial components were then removed and the orthomix anesthetic cocktail was injected per protocol. The knee was then copiously irrigated with pulsatile lavage saline solution. Final components were then cemented with Refobacin cement. Final components were triathlon right size 5 posterior stabilized femoral component, 5 primary tibial baseplate, 5 x 11 mm X.3 polyethylene tibial bearing insert and a 33 x 9 mm symmetrical X.3 polyethylene patella component. After the cement cured the Betadine soak was used for 3 minutes. Further pulsatile lavage irrigation was then performed and 2 Hemovac drains were brought out laterally. The quadriceps tendon and medial retinaculum were closed with figure of 8 #1 Vicryl sutures. The knee was taken through full range of motion and the repair was secure. Knee range of motion was 0 through 130 degrees. The subcutaneous tissues were closed with 2-0 Vicryl sutures. Skin was closed with artemio. Standard sterile dressing was applied due to adhesive allergy. Ant wrap was placed from the foot to the thigh. The patient tolerated the procedure well. Demarco LUGO was my physician education assistant who participated as international first officer and was involved in all aspects of the procedure including patient positioning prepping and draping,leg positioning ,soft tissue retraction and instrument management and participated in the closing and application of dressings and will participate in postoperative care of the patient. The patient tolerated the procedure well. There was increase of difficulty due to her obesity which added 30 minutes to the procedure. I attest to the content of the Intraoperative Record and any orders documented therein. Any exceptions are noted below.
[2022-10-18] MEDS ORDERED: HYDROmorphone INJ 1 MG/ML SYRINGE IV PRN (14:14)
[2022-10-18] MEDS ORDERED: HYDROmorphone INJ 0.5 MG/0.5 ML SYR ONE (14:15)
--- NOTE | 2022-10-18 14:21 | Anesthesiology Progress Note ---
Date of Service October 18, 2022 Anesthesia Post Procedure Vital Signs Vital Signs: Temp Pulse Pulse Pulse Resp BP BP 10/18/22 14:10 99 H 18 136/71 10/18/22 14:00 104 H 20 130/67 10/18/22 13:40 101 H 16 127/63 10/18/22 13:50 100 H 15 125/68 10/18/22 13:30 102 H 20 126/80 10/18/22 13:21 36.7 C 105 H 26 H 137/66 10/18/22 10:21 73 16 135/61 10/18/22 07:26 36.6 C 93 H 20 BP Pulse Ox O2 Del Method O2 Flow Rate 10/18/22 14:10 98 Nasal Cannula 2 10/18/22 14:00 99 Nasal Cannula 2 10/18/22 13:40 97 Nasal Cannula 2 10/18/22 13:50 95 Nasal Cannula 2 10/18/22 13:30 100 Oxymask 4 10/18/22 13:21 98 Oxymask 4 10/18/22 10:21 100 Oxymask 8 10/18/22 07:26 163/103 H 99 Room Air Pain Intensity Right Knee: Pain Intensity: 6 Transfer of Care Handoff Completed per policy Notes Mental Status: alert / awake / arousable Patient Amnestic to Procedure: Yes Nausea / Vomiting: adequately controlled Pain: adequately controlled Airway Patency, RR, SpO2: stable & adequate BP & HR: stable & adequate Hydration State: stable & adequate Neuraxial Anesthesia: was administered and sensory block is resolving Anesthetic Complications: no major complications apparent and Pt Satisfied with anesthetic care
--- NOTE | 2022-10-18 14:39 | XRay Report ---
XR knee RT 1 or 2V routine CLINICAL HISTORY: Surgical Post Op TECHNIQUE: 2 views of the right knee were obtained. Comparison: None available at the time of this dictation. FINDINGS: Patient is status post total knee arthroplasty with expected postsurgical changes including soft tiss ue swelling and subcutaneous emphysema. No periarticular lucency or hardware fracture is seen. IMPRESSION: Expected postoperative appearance status post placement of total knee arthroplasty. ACT 112: Negative or not required by law. Electronically signed by: Lalit Kapoor M.D. 10/18/2022 2:38 PM
[2022-10-18] MEDS ORDERED: bisacodyL 10 MG SUPP PR PRN (14:49)
[2022-10-18] MEDS ORDERED: VANCOMYCIN CONSULT ACTIVE PRN (14:49)
[2022-10-18] MEDS ORDERED: METOCLOPRAMIDE HCL INJ 5 MG/ML 2 ML VIAL IV PRN (14:49)
[2022-10-18] MEDS ORDERED: MAGNESIUM HYDROXIDE SUSP 30 ML UDC PO PRN (14:49)
[2022-10-18] MEDS ORDERED: NALOXONE HCL 0.4 MG/1 ML VIAL/CARP IV PRN (14:49)
[2022-10-18] MEDS ORDERED: HYDROmorphone INJ 0.5 MG/0.5 ML SYR IV PRN (14:49)
[2022-10-18] MEDS ORDERED: CETIRIZINE HCL 10 MG TABLET PO PRN (14:49)
[2022-10-18] MEDS: SODIUM CHLORIDE 0.9% 1000ML 1,000 ML IV SCH (15:00)
--- NOTE | 2022-10-18 15:26 | Hospitalist Consultation ---
Date of Consultation October 18, 2022 Assessment & Plan (1) Primary osteoarthritis of right knee: POD #0 p Right Total Knee Arthroplasty(Right), lateral release- reported EBL 5ml - Pain control per primary service- tiered approach is ordered as well as rescue Narcan is available - PT/OT consultation per primary service - ABX therapy per primary service - VTE prophylaxis per primary service - IVF per primary service - DIet per primary service - OT/PT per primary service - Drain management per primary service (2) Hypertension: HTN controlled by review - Hold ARB overnight- BMP in morning, if renal indices normal can restart - Continue Amlodopine (3) Osteoarthritis: As above - had her left knee done 2018 (4) Morbid obesity: May be able to better participate in weight loss efforts following this knee replacement - has been screened for JENNIFER she reports in 2018 and reports no CPAP/BiPAP needed - Continue oxygen as needed for SPo2 >94% - CPAP if overly sedated or hypoxic following pain meds Supervising Physician Co-Signing Physician Notes I personally saw and examined the patient. I verified all ibrahim points and agree with TORY Garcia with the following exceptions and/or additions: 56 year old female POD#0 right TKA. Doing well post operatively. No dizziness. Reports HTN chronically well controlled. Took amlodipine but not her Hyzaar this morning per pre-op instructions. No concerns or questions from the patient. O/E Morbidly obese, HS RRR, no murmurs, Chest CTAB, Abdo SNT, NV intact distally A/P VTE/Pain/bowel regimen per primary orthopedics team Agree with HTN management as above History of Present Illness Reason for Consultation: Medical Management Requesting Physician: Sher Wilhelm Attending Physician: Sher Wilhelm MD History of Present Illness 56 YOF with medical history of: HTN, OA, Obesity, PONV. Patient admitted to medical/surgical galan by Orthopaedics. Medicine is consulted for medical management. Patient is POD #0 p Right Total Knee Arthroplasty(Right), lateral release by Dr. Aguilera. Patient was intubated with LMA during the case with SAB and Propofol. She was evaluated in her room on the galan. She is awake and oriented, on NC as well as without nausea/vomiting, and with pain controlled. Patient reports that she has had sleep study in the past and she reports not be ing candidate for CPAP/BIPAP. She reports history of HTN and medical reconciliation correct. Will follow hemodyanmics and BMP in the morning. Hold ARB until BMP back in morning and can likely restart. Rescue Narcan is Available. Allergies Allergy/AdvReac Type Severity Reaction Status Date / Time iodine Allergy Intermediate Rash Verified 10/18/22 08:06 adhesive tape Allergy Unknown skin Verified 10/18/22 07:22 irritation amoxicillin Allergy Unknown lips numb, Verified 10/18/22 07:22 hives, swelling blueberry Allergy Unknown gi upsets Verified 10/18/22 07:22 egg Allergy Unknown anaphylaxis Verified 10/18/22 07:22 Penicillins Allergy Unknown hives, Verified 10/18/22 07:22 swelling Sulfa (Sulfonamide Allergy Unknown hives,throat Verified 10/18/22 07:22 Antibiotics) swelling almond AdvReac Unknown gi upsets Verified 10/18/22 07:22 banana AdvReac Unknown gi upsets Verified 10/18/22 07:22 lactose AdvReac Unknown gi upsets Verified 10/18/22 07:22 orange AdvReac Unknown gi upsets Verified 10/18/22 07:22 rice AdvReac Unknown gi upsets Verified 10/18/22 07:22 strawberry AdvReac Unknown Gastrointestinal Verified 10/18/22 07:22 Upset Home Medications Medication Instructions Recorded Confirmed Type amlodipine 10 mg tablet 10 mg PO QAM 01/31/18 10/18/22 History cetirizine 10 mg tablet (Zyrtec) 10 mg PO DAILY PRN allergies 01/31/18 10/18/22 History acetaminophen 500 mg tablet 1,000 mg PO UD PRN Pain 09/27/22 10/18/22 History olmesartan 40 1 tab PO QAM 09/27/22 10/18/22 History mg-hydrochlorothiazide 25 mg tablet albuterol 10/18/22 History acetaminophen 500 mg tablet 1,000 mg PO Q8 #60 tabs 10/19/22 Rx (Tylenol Extra Strength) oxycodone 5 mg tablet 5 - 10 mg PO .Q4h-6h PRN pain #30 10/19/22 Rx tabs rivaroxaban 10 mg tablet (Xarelto) 10 mg PO DAILY #30 tabs 10/19/22 Rx Patient History Medical History Acid reflux remote hx, controlled and stable at this time per pt History of colon polyps noncancerous per pt History of COVID-19 2020 > cough, fever, sore throat, fatigue > received monoclonal antibodies > denies hospitalization > symptoms resolved Hypertension controlled, stable per pt Morbid obesity Nausea and vomiting after administration of anesthetic agent denies needing scop patch Sleep apnea mild, did not need CPAP per pt Surgical History History of cholecystectomy History of endoscopy remote History of left knee replacement History of meniscectomy of left knee Hx of appendectomy Hx of colonoscopy Hx of prior ablation treatment UTERINE Hx of tubal ligation Family History Father Throat cancer Stroke Mother Breast cancer Aunt Family history of diabetes mellitus Aunt Family history of diabetes mellitus Brother Family history of diabetes mellitus Social History Smoking Status: Never smoker Do You Dip or Chew Tobacco: No; Hx Alcohol Use: Yes Alcohol type: beer Hx Substance Use: No Preferred Language: Brazilian Communication Ability: Effective Histopath Tech Required: No Beliefs That Will Affect Care: Temple Temple Beliefs: Evangelical marital status: Current Living Situation: Spouse Other Information That Helps Us Care for You: No Feels Safe at Home: Yes Assistive Devices: Walker Review of Systems Review of Systems: REVIEW OF SYSTEMS: Constitutional: No fever, sweats or chills Eyes: No diplopia, no worsening or blurred vision ENT: normal hearing, no trouble swallowing Respiratory: No cough, sputum, dyspnea at rest or on exertion Cardiovascular: No chest pain, tightness or palpitations Abdomen: No pain, nausea, vomiting, diarrhea or constipation Musculoskeletal: (+) joint pain, NO calf pain, swelling Neurologic: No weakness, numbness/tingling, or balance problems Psychiatric: No anxiety or depression Skin: No rash or itch Physical Exam Physical Exam: PHYSICAL EXAM: General: awake, alert, no apparent distress Head: Normocephalic, atraumatic ENT: PERRLA, EOMI, no pharyngeal exudate, mucous membranes moist Neuro: AAO x 3, speech clear and appropriate, strength intact bilaterally 5/5, sensation intact and equal all extremities and dermatomes, no pronator drift Chest: equal rise and fall of the chest, no accessory muscle use, no heaves or thrills, Clear to auscultation, on room air, Cardiac: Regular rate and rhythm, telemetry reviewed, skin warm dry, cap refill <3 seconds, peripheral pulses, +2 no JVD, no murmur, no edema GI: NABS x 4 quadrants, soft, nontender to palpation, no rebound, guarding or tenderness : Spontaneously voiding, no pain, no CVA tenderness, Extremities: RIght knee with paul wrap, SCDS, Hemovac drain Psych: Normal mood and affect Skin: no rash or erythema Results & Data Results & Data Vital Signs (Past 12 Hours) Vital Signs Temp Pulse Pulse Pulse Pulse Resp BP 10/18/22 15:20 36.5 C 99 H 16 10/18/22 14:35 104 H 17 10/18/22 14:20 36.5 C 103 H 16 10/18/22 14:10 99 H 18 10/18/22 14:00 104 H 20 10/18/22 13:40 101 H 16 10/18/22 13:50 100 H 15 10/18/22 13:30 102 H 20 10/18/22 13:21 36.7 C 105 H 26 H 10/18/22 10:21 73 16 135/61 10/18/22 07:26 36.6 C 93 H 20 BP BP Pulse Ox O2 Del Method O2 Flow Rate 10/18/22 15:20 133/72 99 Nasal Cannula 3 10/18/22 14:35 122/61 99 Nasal Cannula 2 10/18/22 14:20 135/65 97 Nasal Cannula 2 10/18/22 14:10 136/71 98 Nasal Cannula 2 10/18/22 14:00 130/67 99 Nasal Cannula 2 10/18/22 13:40 127/63 97 Nasal Cannula 2 10/18/22 13:50 125/68 95 Nasal Cannula 2 10/18/22 13:30 126/80 100 Oxymask 4 10/18/22 13:21 137/66 98 Oxymask 4 10/18/22 10:21 100 Oxymask 8 10/18/22 07:26 163/103 H 99 Room Air Laboratory Results none for immediate review Diagnostic Findings Knee X-Ray 10/18/22 13:24 XR knee RT 1 or 2V routine CLINICAL HISTORY: Surgical Post Op TECHNIQUE: 2 views of the right knee were obtained. Comparison: None available at the time of this dictation. FINDINGS: Patient is status post total knee arthroplasty with expected postsurgical changes including soft tissue swelling and subcutaneous emphysema. No periarticular lucency or hardware fracture is seen. IMPRESSION: Expected postoperative appearance status post placement of total knee arthroplasty. ACT 112: Negative or not required by law. Electronically signed by: Lalit Kapoor M.D. 10/18/2022 2:38 PM Medications Administered Acetaminophen (Acetaminophen 500 Mg Tab) 1,000 mg PO Q8 ALFONSO Stop: 11/17/22 15:14 Last Admin: 10/18/22 15:49 Dose: 1,000 mg Documented By: CEF Hydromorphone HCl (Hydromorphone Inj 1 Mg/Ml Syringe) 0.25 mg IV Q5M PRN PRN Reason: PACU Use Only-Pain Stop: 10/18/22 22:14 Last Admin: 10/18/22 14:22 Dose: 0.25 mg Documented By: JANINE Sodium Chloride (Nss 1000ml) 1,000 mls @ 100 mls/hr IV .Q10H ALFONSO Stop: 10/19/22 06:00 Last Admin: 10/18/22 15:00 Dose: 100 mls/hr Documented By: CEF Discontinued Medications Acetaminophen (Acetaminophen 500 Mg Tab) 1,000 mg PO PREOP ALFONSO Stop: 10/18/22 18:00 Last Admin: 10/18/22 07:46 Dose: 1,000 mg Documented By: RUDY Celecoxib (Celebrex 200 Mg Cap) 200 mg PO PREOP ALFONSO Stop: 10/18/22 18:00 Last Admin: 10/18/22 07:46 Dose: 200 mg Documented By: RUDY Dexamethasone (Dexamethasone 4 Mg Tab) 8 mg PO PREOP ALFONSO Stop: 10/18/22 18:00 Last Admin: 10/18/22 07:47 Dose: 8 mg Documented By: RUDY Famotidine (Famotidine 20 Mg Tab) 20 mg PO PREOP ALFONSO Stop: 10/18/22 18:00 Last Admin: 10/18/22 08:04 Dose: 20 mg Documented By: Admin: 10/18/22 07:45 Dose: Not Given Documented By: CHIU Fentanyl Citrate (Fentanyl Citrate Pf 100 Mcg/2 Ml Vial) 25 mcg IV Q5M PRN PRN Reason: PACU Use Only-Pain Stop: 10/18/22 16:17 Last Admin: 10/18/22 13:51 Dose: 25 mcg Documented By: Admin: 10/18/22 13:46 Dose: 25 mcg Documented By: Admin: 10/18/22 13:41 Dose: 25 mcg Documented By: Admin: 10/18/22 13:36 Dose: 25 mcg Documented By: JANINE Gabapentin (Gabapentin 600 Mg Dose) 600 mg PO PREOP ALFONSO Stop: 10/18/22 18:00 Last Admin: 10/18/22 08:04 Dose: 600 mg Documented By: Admin: 10/18/22 07:45 Dose: Not Given Documented By: CHIU Hydromorphone HCl (Hydromorphone Inj 0.5 Mg/0.5 Ml Syr) Confirm Administered Dose 0.5 mg .ROUTE .[facility] Stop: 10/18/22 14:16 Last Admin: 10/18/22 14:17 Dose: 0.25 mg Documented By: JANINE Lactated Ringer's (Lr) 1,000 mls @ 15 mls/hr IV .Q24H ALFONSO Stop: 10/18/22 18:00 Last Infusion: 10/18/22 10:45 Dose: 0 mls/hr Documented By: [facility] [place] Admin: 10/18/22 07:53 Dose: 15 mls/hr Documented By: RUDY Lactated Ringer's (Lr) 1,000 mls @ 60 mls/hr IV .[id number] ALFONSO Stop: 10/18/22 22:39 Last Admin: 10/18/22 08:05 Dose: Not Given Documented By: RUDY Vancomycin HCl 2,000 mg/ (Sodium Chloride) 540 mls @ 200 mls/hr IV PREOP ALFONSO Stop: 10/18/22 18:00 Last Infusion: 10/18/22 15:50 Dose: 0 mls/hr Documented By: [facility] Admin: 10/18/22 07:52 Dose: 200 mls/hr Documented By: RUDY Ropivacaine 150 mg/Bupivacaine HCl 20 ml/Epinephrine HCl 0.15 mg/Ketorolac Tromethamine 30 mg/Dexamethasone 4 mg/ Ketamine HCl 10 mg/ Clonidine HCl 100 mcg/ Sodium Chloride 88.35 mls @ 0 mls/hr INSTIL TODAY@0600 REPLACED BY [facility]; Protocol Stop: 10/18/22 06:01 Last Admin: 10/18/22 12:58 Dose: 88.35 mls/hr Documented By: MILLI Tranexamic Acid (Tranexamic Acid / 0.7% Nacl) 1,000 mg in 100 mls @ 600 mls/hr IV TODAY@0600 REPLACED BY [facility] Stop: 10/18/22 18:00 Last Infusion: 10/18/22 10:10 Dose: 0 mls/hr Documented By: Admin: 10/18/22 10:00 Dose: 600 mls/hr Documented By: REBEKAH Tranexamic Acid (Tranexamic Acid / 0.7% Nacl) 1,000 mg in 100 mls @ 600 mls/hr IV TODAY@0600 REPLACED BY [facility] Stop: 10/18/22 18:00 Last Infusion: 10/18/22 15:50 Dose: 0 mls/hr Documented By: Admin: 10/18/22 12:59 Dose: 600 mls/hr Documented By: [id number] Metoclopramide HCl (Metoclopramide Hcl 10 Mg Tablet) 10 mg PO PREOP ALFONSO Stop: 10/18/22 18:00 Last Admin: 10/18/22 07:48 Dose: 10 mg Documented By: RUDY Miscellaneous (Ortho Joint Anesthetic ) Confirm Administered Dose 1 each .ROUTE .[facility]-MED ONE Stop: 10/18/22 10:17 Last Admin: 10/18/22 12:59 Dose: Not Given Documented By: LEIGHA Scopolamine (Scopolamine 1 Mg Tdsy) Confirm Administered Dose 1 mg TD .STK-MED ONE Stop: 10/18/22 08:03 Last Admin: 10/18/22 08:03 Dose: 1 mg Documented By: RUDY PG Care Time/CCT Total # of Minutes Spent Total Time Spent with Patient: Total time spent is greater than 50% in coordination of care (as documented) at patient's floor/unit and/or counseling patient: Coding Level of Care Code 79835 IN/OBS CONSULT LVL 3,45M Diagnoses Primary osteoarthritis of right knee M17.11 Hypertension I10 Osteoarthritis M19.90 Morbid obesity E66.01
[2022-10-18] MEDS: ACETAMINOPHEN 500 MG TAB PO SCH ×2 (15:49→22:40)
[2022-10-18] MEDS: oxyCODONE HCL IR 5 MG TAB (IMMEDIATE RELEASE) PO PRN (18:05)
[2022-10-18] MEDS: SENNA 8.6 MG TAB PO SCH (19:31)
[2022-10-18] MEDS: DOCUSATE SODIUM 100 MG CAP PO SCH (19:31)
[2022-10-18] MEDS ORDERED: VANCOMYCIN HCL 2,000 MG in SODIUM CHLORIDE 0.9% 500 ML IV SCH (20:00)
[2022-10-19] MEDS: SODIUM CHLORIDE 0.9% 1000ML 1,000 ML IV SCH (00:59)
[2022-10-19] MEDS: oxyCODONE HCL IR 5 MG TAB (IMMEDIATE RELEASE) PO PRN ×5 (04:00→22:03)
[2022-10-19] MEDS: ACETAMINOPHEN 500 MG TAB PO SCH ×3 (05:26→21:08)
[2022-10-19 08:03] LABS: Hematocrit (blood only) 33.2 % (37.0-47.0); Hemoglobin 11.1 g/dl (12.0-16.0); Mean Corpuscular Hgb Conc 33.4 g/dL (32.0-36.0); Mean Corpuscular Volume 86.7 fL (80.0-100.0); Mean Platelet Volume 9.2 fL (9.4-12.4); Platelet Count 358 K/uL (130-400); RDW Coefficient of Variation 13.5 % (11.5-14.5); RDW Standard Deviation 42.3 fL (36.4-46.3); Red Blood Count 3.83 M/uL (4.20-5.40)
--- NOTE | 2022-10-19 08:16 | Orthopedic Progress Note ---
Date of Service October 19, 2022 Assessment & Plan (1) Primary osteoarthritis of right knee: Plan: Postop day #1 right total knee arthroplasty -PT/OT -Pain management as written -DVT prophylaxis: SCDs, teds, Xarelto 10 mg daily -AM labs: Hemoglobin 11.1 from 13 preop acute blood loss anemia due to surgical loss versus dilutional. Leukocytosis likely due to surgical stress versus perioperative steroids. Patient is asymptomatic. BMP looking benign. -Discharge planning: Plan on discharge home with plans on attending outpatient therapy today versus tomorrow. We will recheck her after therapy today and we will recheck drainage. If Hemovac output is satisfactory and does well with therapy plan on discharge home today. -Addendum: Pt seen after PT session. Painful during PT session per therapist. Ambulated "ok". Hemovac drain emptied for another 150cc of drainage. Hold dc for now to allow for adequate pain control and decreased drainage. Admission and Anticipated Discharge Date Admission Date: October 18, 2022 Subjective Patient is postop day 1 right total knee arthroplasty. She is doing well this morning overall. Mild to moderate pain but is controlled. No current complaints. Denies chest pain, shortness of breath, nausea/vomiting/diarrhea, headaches or dizziness. Review of Systems Review of Systems: All systems reviewed & are unremarkable except as noted in Subjective Physical Exam Physical Exam: Right knee: Dressing is clean, dry, intact. Hemovac on suction. Toes are mobile with good dorsiflexion. No calf tenderness. Able to straight leg raise. Distally neurovascular status and sensation is grossly intact. Results & Data Vital Signs (Past 12 Hours) Vital Signs Temp Pulse Resp BP Pulse Ox O2 Del Method 10/19/22 07:26 36.3 C L 60 16 133/84 95 Room Air 10/19/22 03:58 36.4 C L 54 L 18 105/67 95 Room Air 10/18/22 23:02 36.6 C 71 18 124/80 96 Room Air Laboratory Results H & H 10/19/22 Range/Units 06:57 Hgb 11.1 L (12.0-16.0) g/dl Hct 33.2 L (37.0-47.0) %
[2022-10-19 08:18] LABS: BUN Creatinine Ratio 19.5 (10-20); Calcium 8.8 mg/dl (8.6-10.3); Creatinine Clr Calc Pharmacy 119.3 ml/min; Est GFR (African American) 92.7 ml/min; Potassium 3.9 mmol/L (3.5-5.1)
[2022-10-19] MEDS: DOCUSATE SODIUM 100 MG CAP PO SCH ×2 (08:42→21:08)
[2022-10-19] MEDS: MULTIVITAMIN TAB PO SCH (08:42)
[2022-10-19] MEDS: RIVAROXABAN 10 MG TABLET PO SCH (08:42)
[2022-10-19] MEDS: amLODIPine BESYLATE 5 MG TAB PO SCH (08:42)
[2022-10-19] MEDS ORDERED: LOSARTAN/HCTZ 50/12.5MG TAB PO SCH (09:00)
--- NOTE | 2022-10-19 09:38 | Hospitalist Progress Note ---
Date of Service October 19, 2022 Assessment & Plan (1) Primary osteoarthritis of right knee: Plan: 10/18/[address] Wilhelm doing well planning on home rehab (2) Hypertension: Plan: HTN controlled by review - resume arb on discharge - Continue Amlodipine (3) Osteoarthritis: Plan: As above - had her left knee done 2017 (4) Morbid obesity: Plan: May be able to better participate in weight loss efforts following this knee replacement - has been screened for JENNIFER she reports in 2018 and reports no CPAP/BiPAP needed - Continue oxygen as needed for SPo2 >94% - CPAP if overly sedated or hypoxic following pain meds Admission and Anticipated Discharge Date Admission Date: October 18, 2022 Subjective pt is having some right leg pain. otherwise no new complaints, did not have BM yet Physical Exam Physical Exam: awake and alert leg with ice in place, good distal sensation and cap refill Results & Data Results & Data Vital Signs (Past 12 Hours) Vital Signs Temp Pulse Resp BP Pulse Ox O2 Del Method 10/19/22 07:26 97.3 F L 60 16 133/84 95 Room Air 10/19/22 03:58 97.5 F L 54 L 18 105/67 95 Room Air 10/18/22 23:02 97.9 F 71 18 124/80 96 Room Air PG Care Time/CCT Total # of Minutes Spent Total Time Spent with Patient: Total time spent is greater than 50% in coordination of care (as documented) at patient's floor/unit and/or counseling patient: Coding Level of Care Code 14009 SUB INP/OBS CARE 2/35MIN Diagnoses Primary osteoarthritis of right knee M17.11 Hypertension I10 Osteoarthritis M19.90 Morbid obesity E66.01
[2022-10-19] MEDS: SENNA 8.6 MG TAB PO SCH (21:08)
[2022-10-20] MEDS: oxyCODONE HCL IR 5 MG TAB (IMMEDIATE RELEASE) PO PRN ×3 (03:26→12:43)
[2022-10-20] MEDS: ACETAMINOPHEN 500 MG TAB PO SCH ×2 (05:49→12:43)
[2022-10-20] MEDS: amLODIPine BESYLATE 5 MG TAB PO SCH (08:37)
[2022-10-20] MEDS: DOCUSATE SODIUM 100 MG CAP PO SCH (08:37)
[2022-10-20] MEDS: MULTIVITAMIN TAB PO SCH (08:37)
[2022-10-20] MEDS: RIVAROXABAN 10 MG TABLET PO SCH (08:37)
--- NOTE | 2022-10-20 08:55 | Orthopedic Progress Note ---
Date of Service October 20, 2022 Assessment & Plan (1) Primary osteoarthritis of right knee: Plan: Postop day #2 right total knee arthroplasty -PT/OT -Pain management as written -DVT prophylaxis: SCDs, teds, Xarelto 10 mg daily -Discontinue dressing and drain prior to discharge. -Discharge planning: Plan on discharge home today Admission and Anticipated Discharge Date Admission Date: October 18, 2022 Subjective Postop day 2 Patient sitting at the edge of the bed. Chest came back from the bathroom doing her morning toiletries. Having some mild discomfort in the knee this morning but tolerating well. No other complaints Physical Exam Physical Exam: Dressings are clean, dry, and intact. Calves are soft nontender. Neurovascular intact. Toes are mobile. Results & Data Vital Signs (Past 12 Hours) Vital Signs Temp Pulse Resp BP Pulse Ox O2 Del Method 10/20/22 08:06 36.3 C L 75 17 155/80 H 97 Room Air 10/19/22 22:43 36.8 C 62 18 151/84 H 96 Room Air
[2022-10-20] MEDS ORDERED: LOSARTAN POTASSIUM 25 MG TAB PO SCH (09:00)
--- NOTE | 2022-10-21 08:15 | Discharge Summary ---
Date of Service October 21, 2022 Admission HPI Per Admitting Provider 56 yo female with PMHx significant for HTN, JENNIFER who presents with ongoing right knee pain. Pain is interfering with her daily activity. She has failed conservative measures and would like to proceed with surgical intervention. Patient denies headaches, sweats, fevers, chills, double vision, blurred vision, cough, sore throat, dysphagia, chest pain, sob, wheezing, n/v/d/c, numbness, tingling, fatigue, urinary symptoms, mood disorders. ROS positive for right knee pain and stiffness. Admission Exam Per Admitting Provider Constitutional: well developed and well nourished; no acute distress Eyes: PERRL, conjunctivae normal, anicteric sclerae ENMT: external ear and nose normal, oropharynx normal Neck: trachea midline, no thyromegaly Respiratory: normal respiratory effort, lungs clear to auscultation Cardiovascular: RRR, no murmur, no edema Musculoskeletal: Right knee: Varus alignment. Tenderness medial joint line. Stable to valgus and varus stress. Guarded Connor's. ROM 0-95 degrees. Skin: no rashes, warm and dry Neurologic: patellar DTR's 2+ bilat, sensation intact Psychiatric: A+Ox3, euthymic affect Principal Diagnosis Right knee osteoarthritis Discharge Exam Dressings are clean, dry, and intact. Calves are soft nontender. Neurovascular intact. Toes are mobile. Constitutional well developed and well nourished; no acute distress Discharge Data Allergies Allergy/AdvReac Type Severity Reaction Status Date / Time iodine Allergy Intermediate Rash Verified 10/18/22 08:06 adhesive tape Allergy Unknown skin Verified 10/18/22 07:22 irritation amoxicillin Allergy Unknown lips numb, Verified 10/18/22 07:22 hives, swelling blueberry Allergy Unknown gi upsets Verified 10/18/22 07:22 egg Allergy Unknown anaphylaxis Verified 10/18/22 07:22 Penicillins Allergy Unknown hives, Verified 10/18/22 07:22 swelling Sulfa (Sulfonamide Allergy Unknown hives,throat Verified 10/18/22 07:22 Antibiotics) swelling almond AdvReac Unknown gi upsets Verified 10/18/22 07:22 banana AdvReac Unknown gi upsets Verified 10/18/22 07:22 lactose AdvReac Unknown gi upsets Verified 10/18/22 07:22 orange AdvReac Unknown gi upsets Verified 10/18/22 07:22 rice AdvReac Unknown gi upsets Verified 10/18/22 07:22 strawberry AdvReac Unknown Gastrointestinal Verified 10/18/22 07:22 Upset Consultations 10/18/22 14:49 Consult Hospitalist Routine Procedures Performed Operation Date: 10/18/22 09:45 Actual Procedures p Right Total Knee Arthroplasty(Right) - Sher Wilhelm MD Ordered Studies 10/18/22 05:00 US - OR guided needle placemen Routine Hospital Course (1) Primary osteoarthritis of right knee: Postop day #2 right total knee arthroplasty -PT/OT -Pain management as written -DVT prophylaxis: SCDs, teds, Xarelto 10 mg daily -Discontinue dressing and drain prior to discharge. -Discharge planning: Plan on discharge home today Postop day #1 right total knee arthroplasty -PT/OT -Pain management as written -DVT prophylaxis: SCDs, teds, Xarelto 10 mg daily -AM labs: Hemoglobin 11.1 from 13 preop acute blood loss anemia due to surgical loss versus dilutional. Leukocytosis likely due to surgical stress versus perioperative steroids. Patient is asymptomatic. BMP looking benign. -Discharge planning: Plan on discharge home with plans on attending outpatient therapy today versus tomorrow. We will recheck her after therapy today and we will recheck drainage. If Hemovac output is satisfactory and does well with therapy plan on discharge home today. -Addendum: Pt seen after PT session. Painful during PT session per therapist. Ambulated "ok". Hemovac drain emptied for another 150cc of drainage. Hold dc for now to allow for adequate pain control and decreased drainage. Lab Results 10/19/22 10/19/22 Range/Units 06:57 06:57 WBC 16.10 H (4.8-10.8) K/ul RBC 3.83 L (4.20-5.40) M/uL Hgb 11.1 L (12.0-16.0) g/dl Hct 33.2 L (37.0-47.0) % MCV 86.7 (80.0-100.0) fL MCH 29.0 (25.0-34.0) pg MCHC 33.4 (32.0-36.0) g/dL RDW Std Deviation 42.3 (36.4-46.3) fL RDW Coeff of Xiao 13.5 (11.5-14.5) % Plt Count 358 (130-400) K/uL MPV 9.2 L (9.4-12.4) fL Sodium 138 (136-145) mmol/L Potassium 3.9 (3.5-5.1) mmol/L Chloride 106 (98-107) mmol/L Carbon Dioxide 25 (21-32) mmol/L Anion Gap 7 (3-11) BUN 16 (6-23) mg/dl Creatinine 0.82 (0.6-1.2) mg/dl Est Cr Clr Drug Dosing 119.3 ml/min Est GFR ( Amer) 92.7 ml/min Est GFR (Non-Af Amer) 80.0 ml/min BUN/Creatinine Ratio 19.5 (10-20) Glucose 115 H (70-99(Fasting)) mg/dl Calcium 8.8 (8.6-10.3) mg/dl Total Time Total Time Spent Total Time Spent (In Minutes): 20 Discharge Plan Discharge Items Patient Disposition: Home - Self-Care Reason For Visit: Right Knee Osteoarthritis Discharge Diagnosis: Right knee osteoarthritis Activity: Per Instructions section Non-emergency contact: Surgeon Call non-emergency contact if: you have any medication questions, your pain is not controlled, you have a fever, your temperature is above 101, your wound has increased redness and your wound has increased drainage Follow-up/Referrals: Sher Wilhelm MD [Surgeon] - (Follow-up with Dr. Wilhelm or his PA in 2 weeks from the day of your surgery for your first postoperative visit.) Seven Desouza PA-C [Primary Care Provider] - Diet: Regular Addtl Attending Provider Instructions: ACTIVITY RECOMMENDATIONS: SELF CARE INSTRUCTIONS AFTER TOTAL KNEE REPLACEMENT A. You may need to continue a physical therapy program after discharge from the hospital. There are several options available to you. Your doctor will assist you in selecting the best one for you. 1. An out-patient facility 2 to 3 times a week for therapy or home therapy. 2. Continue working on all exercises taught to you in the hospital. Your goals should be to increase bending of your knee to 90 degrees and beyond and to fully straighten your knee. B. You may progress at your own pace from walking with a walker or crutches to a cane; then to no assistive devices. C. Make walking a part of your daily routine. Be up as much as comfortable with rest periods throughout the day. Rest with leg elevation is very important. Use the ice wrap frequently for the first 3-4 weeks. D. There are no restrictions on activities. You may ride in a car, shop, participate in [employer] and all social activities. E. Wear the long elastic stockings (JUNE hose) 20 hours a day for 2 weeks after surgery. They can be removed several times a day for laundering and for a bath. F. You may shower, no tub baths until cleared by your doctor. SPECIAL CARE INSTRUCTIONS: VERY IMPORTANT TO READ AND REVIEW A. There are a few signs you need to watch for after you are home. Call [facility] if you notice any of the followin. Increased severe knee pain. Some pain is expected especially when you exercise. 2. Increased swelling in your leg or knee; pain or swelling of the calf muscle in either lower leg. 3. Any fluid drainage from the incision. 4. Shortness of breath or chest pain. B. Please call [facility] at if you have any concerns or questions about your operation or recovery. The doctor or his nurse will return your call promptly. C. You must take antibiotics before dental work, bladder, bowel or other surgery. Your doctor will provide you with a permanent care to carry describing this precaution. IMPORTANT: * REMEMBER TO TAKE XARELTO 10MG ORALLY ONCE DAILY FOR 4 WEEKS UNLESS OTHERWISE DIRECTED. THIS IS YOUR BLOOD THINNER. * CALL IF INCREASED PAIN, REDNESS, DRAINAGE OR FEVER GREATER THAT 101. * WEAR JUNE HOSE 20 HOURS PER DAY FOR 2 WEEKS. You may perform dry, daily dressing changes. Please keep your incision covered. You may shower 48 hours after surgery. Do not apply soap or any ointment/lotions directly over incision. Do not soak incision in bath tub/swimming pool IF INCISION IS LEAKING THROUGH DRESSING, CALL THE OFFICE . FOLLOW UP VISIT: If appointment is not already scheduled: Please call [facility] to make a follow-up appointment for 2 weeks after your surgery at . Stand-Alone Forms: My [facility], Smoking Cessation Medications and DC Order Prescriptions: New acetaminophen [Tylenol Extra Strength] 500 mg Tablet 1,000 mg PO Q8 Qty: 60 0RF oxycodone 5 mg Tablet 5 - 10 mg PO .Q4h-6h MDD 6 PRN (Reason: pain) Qty: 30 0RF Rx Instructions: Ongoing therapy, Dr. Wilhelm supervising Xarelto 10 mg Tablet 10 mg PO DAILY Qty: 30 0RF polyethylene glycol 3350 [Miralax] 17 gram powder in packet 17 g PO DAILY PRN (Reason: constipation) Qty: 5 0RF Continued cetirizine [Zyrtec] 10 mg Tablet 10 mg PO DAILY PRN (Reason: allergies) Patient Comments: recently daily amlodipine 10 mg Tablet 10 mg PO QAM olmesartan-hydrochlorothiazide 40-25 mg Tablet 1 tab PO QAM albuterol Discontinued acetaminophen 500 mg Tablet 1,000 mg PO UD PRN (Reason: Pain) Discharge Orders: Discharge Order (Routine); Ordered 10/20/22 Ordered By: Luigi Sinclair Admission Data Admit Date/Time: 10/18/22 13:24 Attending Provider: Sher Wilhelm Admit Provider: Sher Wilhelm Primary Care Provider: Seven Desouza Other Providers: Anatoly Harvey Other Interventions: Discharge Summary Assessment (RN) Last Done: 10/20/22 11:58
== END 2022-10-20 13:10 | disposition home or self-care (01) ==
LOC: 3E 06:39 → ASU 06:39